=== PATIENT | female | born 1995 | race Caucasian/White ===

== ENCOUNTER 2017-02-12 11:33 | Emergency (ER) | payer BC ==
[~2017-02-12] VITALS: Ht 154.9 cm; Wt 52.2 kg
[2017-02-12 12:03] LABS: *BILIRUBIN,URIN NEGATIVE (NEGATIVE); *BLOOD, URINE Trace-intact (NEGATIVE); *CLARITY,URINE CLOUDY (CLEAR); *COLOR,URINE YELLOW (YELLOW); *KETONES,URINE NEGATIVE (NEGATIVE); *PROTEIN,URINE 1+ (NEGATIVE); LEUKOCYTE ESTERASE ,URINE TRACE (NEGATIVE); NITRITE, URINE NEGATIVE (NEGATIVE); UGLUCOSE NEGATIVE (NEGATIVE)
[2017-02-12 12:14] LABS: WBC,URINE TNTC /HPF (0-3)
[2017-02-12 12:15] LABS: *URINE HCG, QUAL NEGATIVE (NEGATIVE); BACTERIA,URINE MODERATE /HPF (NONE SEEN); MUCUS,URINE MODERATE /LPF (0-FEW); SQUAMOUS EPITHELIAL CELL,UR MANY /HPF (NONE SEEN)
--- NOTE | 2017-02-12 12:44 | NUR ---
DR YOUSSEF EVALUATED THE PT. PT WAS D/C TO HOME. D/C INSTRUCTIONS GIVEN TO THE PT.
[2017-02-12 12:48] VITALS: BP 136/71
== END 2017-02-12 12:48 | disposition home or self-care (01) ==
LOC: ER 11:33
DX: N12 Tubulo-interstitial nephritis, not specified as acute or chronic (principal); F31.9 Bipolar disorder, unspecified; Z88.8 Allergy status to other drugs, medicaments and biological substances
CPT/HCPCS: 81001; 84703; 87077; 87086; 87186; 99284; A4663

== ENCOUNTER 2017-05-22 12:12 | Emergency (ER) | payer BC ==
[~2017-05-22] VITALS: Ht 154.9 cm; Wt 52.2 kg
[2017-05-22] MEDS ORDERED: ONDANSETRON ODT 4 MG TAB.RAPDIS SL ONE (12:45)
[2017-05-22] MEDS ORDERED: ONDANSETRON ODT 4 MG TAB.RAPDIS ONE (12:49)
[2017-05-22 13:07] LABS: *BILIRUBIN,URIN NEGATIVE (NEGATIVE); *BLOOD, URINE Trace-intact (NEGATIVE); *CLARITY,URINE SLIGHTLY CLOUDY (CLEAR); *COLOR,URINE YELLOW (YELLOW); *KETONES,URINE TRACE (NEGATIVE); *PROTEIN,URINE 1+ (NEGATIVE); *UROBILINOGEN,URINE 0.2 E.U./dl (NORMAL); LEUKOCYTE ESTERASE ,URINE 1+ (NEGATIVE); NITRITE, URINE NEGATIVE (NEGATIVE); PH,URINE 6.5 (5.0-8.0); UGLUCOSE NEGATIVE (NEGATIVE)
[2017-05-22 13:09] LABS: *URINE HCG, QUAL NEGATIVE (NEGATIVE)
[2017-05-22 13:24] LABS: BACTERIA,URINE FEW /HPF (NONE SEEN); SQUAMOUS EPITHELIAL CELL,UR MODERATE /HPF (NONE SEEN); YEAST,URINE FEW /HPF (NONE SEEN)
[2017-05-22 13:25] LABS: MUCUS,URINE MANY /LPF (0-FEW)
[2017-05-22] MEDS ORDERED: ACETAMINOPHEN ES 500 MG TABLET PO ONE (13:30)
[2017-05-22] MEDS ORDERED: ACETAMINOPHEN ES 500 MG TABLET ONE (13:44)
--- NOTE | 2017-05-22 13:48 | NUR ---
Patient discharged to home in stable conditon. Written and verbal after care instructions given. Patient verbalizes understanding of instructions.PT WALKS IN STEADY GAIT.
[2017-05-22 13:49] VITALS: BP 101/65
== END 2017-05-22 13:50 | disposition home or self-care (01) ==
LOC: ER 12:12
DX: M54.5 Low back pain (principal); Z88.8 Allergy status to other drugs, medicaments and biological substances
CPT/HCPCS: 81001; 84703; 99284; A4663; A9150; Q0162